=== PATIENT | female | born 2000 | race Hispanic/Latino ===

== ENCOUNTER 2024-04-19 01:46 | Emergency (ER) | payer SELFPAY ==
[2024-04-19] MEDS ORDERED: Ketorolac Tromethamine 30 MG (1 mL) VIAL ONE (02:12)
== END 2024-04-19 03:29 | disposition home or self-care (01) ==
LOC: CSHERS 01:46
DX: R07.81 Pleurodynia (principal)
CPT/HCPCS: 71045; 85379; 93005; 96374; J1885